=== PATIENT | female | born 1995 | race Caucasian/White ===

== ENCOUNTER → 2024-02-22 12:57 | Outpatient (REF) | payer OTHER, SELFPAY | LOC: HWRAD 12:57 | PROVIDERS: ATTENDING PHYSICIAN Nurse Practitioner Obstetrics & Gynecology; FAMILY PHYSICIAN Nurse Practitioner Family | DX: R10.2 Pelvic and perineal pain (principal) | CPT/HCPCS: 76830; 76856 ==

== ENCOUNTER 2024-04-09 15:33 | Emergency (ER) | payer OTHER, SELFPAY ==
[2024-04-09 15:34] VITALS: BP 137/80
[2024-04-09 15:50] LABS: % Basophils 0.2 % (0-2); % Eosinophils 0.5 % (0-6); % Immature Granulocytes 0.4 % (0-0.5); % Lymphocytes 16.2 % (20.5-51.1); % Monocytes 3.7 % (1.7-9.3); Absolute Eosinophils 0.1 10^3/uL (0-0.7); Absolute Immature Granulocytes 0.1 10^3/uL (0-0.05); Absolute Monocytes 0.5 10^3/uL (0.1-0.6); Absolute Neutrophils 9.8 10^3/uL (1.4-6.5); Hematocrit 36.3 % (37.0-47.0); Hemoglobin 12.5 g/dL (12.0-16.0); Mean Corp Hgb Conc. 34.4 g/dL (33.0-37.0); Mean Corpuscular Hgb 27.4 pg (27.0-31.0); Mean Corpuscular Volume 79.6 fL (81.0-99.0); Mean Platelet Volume 8.3 fL (7.4-10.4); Nucleated Red Blood Cells % 0 %; Platelet Count 235 10^3/uL (130-400); Red Blood Cell Count 4.56 10^6/uL (4.20-5.40); Red Cell Dist. Width 12.7 % (11.5-14.5); White Blood Cell Count 12.4 10^3/uL (4.8-10.8)
[2024-04-09 16:06] LABS: ALT (SGPT) 15 U/L (0-35); AST (SGOT) 18 U/L (14-36); Albumin 4.1 g/dl (3.5-5.0); Alkaline Phosphatase 31 U/L (38-126); Blood Urea Nitrogen 12 mg/dl (7-17); Calcium 9.6 mg/dl (8.4-10.2); Carbon Dioxide 23 mmol/L (22-30); Chloride 104 mmol/L (98-107); Glucose 140 mg/dl (70-99); Potassium 3.7 mmol/L (3.5-5.1); Sodium 138 mmol/L (135-145); Total Bilirubin 0.5 mg/dl (0.2-1.3); Total Protein 6.6 g/dl (6.3-8.2); eGFR > 60.00
[2024-04-09] MEDS: REGLAN 10 MG IV (18:12)
[2024-04-09] MEDS: NSS 1000 IV (18:12)
[2024-04-09] MEDS: BENADRYL 25 MG IV (18:13)
[2024-04-09 18:26] VITALS: BP 103/68
[2024-04-09 18:29] LABS: Urine Albumin Trace (Neg - Trace); Urine Bilirubin Negative (Negative); Urine Character Clear (Clear); Urine Color Yellow; Urine Glucose Negative (Negative); Urine Ketone 1+ (Negative); Urine Leukocyte 1+ (Negative); Urine Nitrite Negative (Negative); Urine Occult Blood Negative (Negative); Urine Specific Gravity 1.025 (<1.030); Urine Urobilinogen Negative (Neg - 1+)
[2024-04-09 18:40] LABS: Urine Mucus Few; Urine Squamous Cell >30 /LPF (Few)
[2024-04-09 18:42] LABS: Urine Bacteria Many (Negative)
[2024-04-09 19:00] VITALS: BP 107/67
--- NOTE | 2024-04-09 19:37 | ED.GENMED ---
History of Present Illness
General
Chief Complaint: Abdominal Symptoms
Source: patient
Exam Limitations: none
Time Seen by Provider: 04/09/24 17:31
Nursing documentation reviewed up to this point in time: agreed with
History of Present Illness
History of Present Illness:
28 y/o F
approx 7 weeks preg
here with nausea/vomiting x 1-2 weeks
has not had 1st ob appt (is in 3 days) but has called them and tried unisom and b6 without relief and zofran rx q8
she vomits a lot of the time after eating solids and sometimes after drinking liquids
last vomit 2 pm
able to take sips since
also constiaptied (moved bowels today but prior to that sh ehas been constipated)
no fever, chills urinary symptoms, dysuria, hematuria, vaginal bleeding
has not had US for this yest
Past History
Past History
ED Past Surgical History: Gynecological and Tonsilectomy
Social History
Tobacco: Non-smoker
Alcohol: None
Drug: None
Personal: Single
Living: with family
Review of Systems
Review of Systems
Allergies reviewed?: Yes
All Other Systems: Not applicable
Phy Exam
Physical Exam
Physical Exam:
GENERAL: Alert , in no apparent distress
EYE: pupils equal and reactive
NECK: Supple
ENT: o/p clr, mmm.
CARDIAC: Regular rate and rhythm .
LUNGS: Clear breath sounds bilaterally, no acute respiratory distress, no wheezes/rales/rhonchi
ABDOMEN: Soft, without focal tenderness, no r/g, no cvat, normal bowel sounds
NEUROLOGICAL: Alert and oriented, no focal neuro deficits
SKIN: Warm and dry, skin intact.
MUSCULOSKELETAL: No edema, well perfused. neg axel's sign
PSYCH: Normal and appropriate interaction.
Course
Orders/Labs/Results
Orders:
Orders
04/09/24 15:40
CMP [Comprehensive Metabolic Panel] Urgent
Complete Blood Count/With Diff Urgent
04/09/24 17:52
0.9% Sodium Chloride 1000 ml [Nss] 1,000 ml IV BOLUS
Diphenhydramine [Benadryl] 25 mg IV NOW STA
Metoclopramide [Reglan] 10 mg 0.9% Sodium Chloride 50 ml [Nss] 50 ml IV NOW
04/09/24 18:00
Metoclopramide [Reglan] 10 mg IV NOW STA
04/09/24 18:21
Urinalysis Reflex To Culture Urgent
Date Specimen was Collected: 04/09/24
Time Specimen was Collected: 17:54
Urine Microscopic Reflex Cult Urgent
Urine Culture Urgent
BECKIE Source: U
Specimen Description:
Date Specimen was Collected: 04/09/24
Time Specimen was Collected: 17:54
Abnormal Lab Results
04/09/24 04/09/24
15:40 18:21
WBC 12.4 H 10^3/uL
(4.8-10.8)
Hct 36.3 L %
(37.0-47.0)
MCV 79.6 L fL
(81.0-99.0)
Abs Immat Gran (auto) 0.1 H 10^3/uL
(0-0.05)
Absolute Neuts (auto) 9.8 H 10^3/uL
(1.4-6.5)
Neutrophils % 79.0 H %
(42.2-75.2)
Lymphocytes % 16.2 L %
(20.5-51.1)
Glucose 140 H mg/dl
(70-99)
Alkaline Phosphatase 31 L U/L
(38-126)
Urine Ketones 1+ A
(Negative)
Leukocyte Esterase Rfl 1+ A
(Negative)
Urine RBC 7-10 A /HPF
(0-2)
Urine WBC (Reflex) 11-15 A /HPF
(0-5)
Urine Bacteria (Reflex) Many A
(Negative)
04/09/24 15:40
04/09/24 15:40
Vital Signs
Initial and Last Documented VS:
Initial Vital Signs
Temp Pulse Resp BP Pulse Ox
98.9 F 96 20 137/80 99
04/09/24 15:34 04/09/24 15:34 04/09/24 15:34 04/09/24 15:34 04/09/24 15:34
Last Documented Vital Signs
Temp Pulse Resp BP Pulse Ox
98.9 F 68 18 107/63 100
04/09/24 15:34 04/09/24 18:26 04/09/24 18:26 04/09/24 19:39 04/09/24 18:26
MDM/Problems Addressed
Differential Diagnosis Includes:
vomiting in , hyperemesis, uti
MDM/Problems Addressed:
28 y/o F
vomiting in
no bleeding, abdominal pain
does not look overly dry
well appearing
no abd tenderness
no urinary symptoms
labs reviewed, mild leukocytosis common in early preg, not clinicialy relevant
urine 1+ ketones
contamined greatly
asking pt to provide 2nd urine sample for urine culture
she has had relief with reglan/benadryl
tlreated apple juice
d/c home with diclegis
*Critical Care Note
Total Time (30-74mins, 75-104mins- exclusive of procedures): Not Applicable
ED Attending Note
-
Portions of this chart may have been created with voice recognition software.� Occasional wrong word or��sound alike� substitutions may have occurred due to the inherent limitations of voice recognition software.
Discharge Plan
Departure
Patient Disposition: Home (Routine Discharge)
Date of Disposition: 04/09/24
Time of Disposition: 19:37
Patient with high blood pressure during this ER visit?: No
Condition: Fair
Covid-19: Not Applicable
Discharge Problem:
Vomiting affecting
Instructions: Hyperemesis Gravidarum (DC), Morning Sickness (DC)
Prescriptions:
New
doxylamine-pyridoxine (vit B6) [Diclegis] 10-10 mg tablet,delayed release (DR/EC)
See Rx Instructions .ROUTE .COMPLEX Qty: 60 0RF
Rx Instructions:
2 tab PO qHS, then if needed 1 tab PO qaM and 2 tabs po qHS, then if needed 1 tab po qAm, 1 tab PO qpm and 2 tabs PO qhs
No Action
PNV cmb#95-ferrous fumarate-FA [] 1 EACH tablet
1 ea PO DAILY
budesonide [Pulmicort Flexhaler] 90 MCG aerosol powdr breath activated
90 mcg inhalation DAILY
ibuprofen 600 MG tablet
600 mg PO Q4HPRN PRN (Reason: moderate pain/cramps) 0RF
Referrals:
Jie Clark MD [Family Provider] -
Activity Restrictions/Additional Instructions:
Try to eat small frequent meals. For your nausea you can continue the Zofran 1 tablet every 8 hours as needed. You can also try the likely just, 2 tablets at night for the first night and then 1 tablet in the morning and 2 tablets at night as
needed for continued symptoms, you can increase to 1 tablet in the morning, 1 tablet in the afternoon and 2 tablets at night to the maximum dose.
Follow-up with your machine baster this week. We sent a urine culture, you had no urinary symptoms with the first sample was contaminated. We will call you if you have signs of infection. Return for any concerns
Interventions
Interventions:
*Risk Screen - Suicide Last Done: 04/09/24 18:27
*General Assessment Last Done: 04/09/24 15:34
*Neglect/Abuse Screening Last Done: 04/09/24 18:27
ED- Fall Risk Assessment Last Done: 04/09/24 18:27
*ED COVID-19 Vaccine History Last Done: 04/09/24 18:27
*Nursing Disposition Last Done: 04/09/24 19:59
PB-Oczkmr-Zwdaqszwlp Assessment Last Done: 04/09/24 18:27
Discharge Date and Time
Discharge Date/Time: 04/09/24 19:59
Print Language: KHMER
[2024-04-09 19:39] VITALS: BP 107/63
== END 2024-04-09 19:59 | disposition home or self-care (01) ==
LOC: EMR 15:33
PROVIDERS: Emergency Medicine; Physician Assistant; EMERGENCY PHYSICIAN Student in an Organized Health Care Education/Training Program; FAMILY PHYSICIAN Family Medicine; OTHER PHYSICIAN Obstetrics & Gynecology
DX: O21.9 Vomiting of pregnancy, unspecified (principal); Z3A.01 Less than 8 weeks gestation of pregnancy
CPT/HCPCS: 99284; 96374; 96375; 96361; 80053; 81003; 81015; 85025; 87086